=== PATIENT | male | born 1930 | race Caucasian/White ===

== ENCOUNTER → 2019-11-11 | Outpatient (CLI) | payer MEDICARE | END | disposition home or self-care (01) | LOC: CFH 15:57 | PROVIDERS: ATTEND Family Medicine Sports Medicine | DX: M71.21 Synovial cyst of popliteal space [Baker], right knee (principal) ==

== ENCOUNTER → 2020-11-26 | Outpatient (CLI) | payer MEDICARE ==
[~2020-11-26] MED LIST: REGADENOSON 0.4 MG/5 ML SYRINGE ONE
== END | disposition home or self-care (01) ==
LOC: CFH 08:32
PROVIDERS: ATTEND Internal Medicine Cardiovascular Disease
DX: I25.89 Other forms of chronic ischemic heart disease (principal)
CPT/HCPCS: 78452; 93017; A9502; J2785

== ENCOUNTER → 2021-02-24 | Outpatient (CLI) | payer MEDICARE | END | disposition home or self-care (01) | LOC: CFH 09:45 | PROVIDERS: ATTEND Internal Medicine Cardiovascular Disease | DX: I08.8 Other rheumatic multiple valve diseases (principal); I25.10 Atherosclerotic heart disease of native coronary artery without angina pectoris | CPT/HCPCS: 93306; 93356 ==